=== PATIENT | male | born 1965 | race Caucasian/White ===

== ENCOUNTER 2021-09-29 08:19 | Outpatient (CLI) | payer SELFPAY ==
[2021-09-29 08:24] VITALS: BP 117/65; PULSE 57; RESP 16; TEMP 36.5; O2SAT 98; BMI 29.2
[2021-09-29] MEDS: 0.9% Saline Lock 10 ML Syringe IV (08:29)
[2021-09-29 09:42] VITALS: BP 104/51; PULSE 81; RESP 16; TEMP 37.3; O2SAT 95
[2021-09-29 10:40] VITALS: BP 108/65; PULSE 58; RESP 18; TEMP 37.3; O2SAT 97
== END 2021-09-29 10:52 | disposition home or self-care (01) ==
LOC: MS3OUT 08:20 → MS3 08:21
PROVIDERS: Referring Provider Nurse Practitioner Adult Health; Visit Provider Nurse Practitioner Adult Health
DX: Z23 Encounter for immunization (principal); U07.1 COVID-19; E11.9 Type 2 diabetes mellitus without complications
CPT/HCPCS: J7050; M0245; Q0245; A4216